=== PATIENT | female | born 1990 | race Caucasian/White ===

== ENCOUNTER → 2017-10-18 | Outpatient (CLI) | payer SELFPAY ==
[~2017-10-18] MED LIST: AMOXICILLIN 50500 MG PO; FERROUS SULFATE65 MG PO; IBU600 MG PO; MACROBID 1100 MG/CAP PO; NO HOME MEDICATIONS; NORCO 325 MG-7.1 TAB PO; PERCOCET 325 MG1 TA2 PO; PRENATAL; PRENATAL1 TA1 PO; PROTONIX20 MG PO
== END ==
LOC: COL.RAD 13:25
DX: E04.2 Nontoxic multinodular goiter (principal)

== ENCOUNTER 2020-12-07 18:24 | Outpatient (CLI) | payer MEDICAID ==
[~2020-12-07] VITALS: Ht 167.6 cm; Wt 112.7 kg
--- NOTE | 2020-12-07 18:55 | NUR ---
G4L3. 37.6. Ambulatory to LDR 4. Clean gown on. EFM and TOCO explained and applied. Pt states she is here with complaints of milky white discharge that she has been having for the past 2 weeks. Pt states if she does not have a pad on the discharge gets on her legs. Pt also reports mild cramping that has been happening for awhile but states since she has only had scheduled C/S she does not know what contractions feel like. Denies vaginal bleeding and reports good movment. Pt does report having two yeast infections during this that she has never had a problem with before. Plan of care explained. SVE closed and amniotest was negative. White milky discharge noted to exam glove. Second amniotest on exam glove was also negative. VS and assessment completed. 1915: called and update on pts status. See physican notification. 1921: NST reactive. Pt off monitors and instructed to changed into street clothes. 1929: Discharge instructions given to pt and stessed importance to call office to schedule appointment for further testing per orders. Pt verbalized her understanding. Denies questions at this time. Pt ambulatory off unit.
[2020-12-07] MEDS ORDERED: SYNTHROID0.05 MG/TA PO (19:10)
[2020-12-07] MEDS ORDERED: PRENATAL MVI PO (19:11)
[2020-12-07] MEDS ORDERED: NATURAL IRON65 MG PO (19:11)
[2020-12-07 19:22] VITALS: BP 127/80; PULSE 108; TEMP 97.8
== END 2020-12-07 19:30 | disposition home or self-care (01) ==
LOC: LDRO 18:24
DX: O99.343 Other mental disorders complicating pregnancy, third trimester (principal); O34.63 Maternal care for abnormality of vagina, third trimester; R25.2 Cramp and spasm; Z3A.37 37 weeks gestation of pregnancy

== ENCOUNTER 2020-12-17 05:34 | Inpatient (IN) | payer MEDICAID ==
[~2020-12-17] VITALS: Ht 167.6 cm; Wt 114.1 kg
[2020-12-17] VITALS (17 sets, daily range): BP systolic 95–128; BP diastolic 49–78; PULSE 61–686; TEMP 97.8–98.5
[~2020-12-17 05:34] MED LIST changes: +NATURAL IRON65 MG PO; +PRENATAL MVI PO; +SYNTHROID0.05 MG/TA PO
--- NOTE | 2020-12-17 05:40 | NUR ---
0540 ADM TO 213 FOR SCHEDULED REPEAT C/S. EFM ON WITH 130 BASELINE. PERMITS SIGNED. 0600 IV STARTED AND LABS DRAWN.
[2020-12-17 06:20] LABS: BASO % 0.4 % (0.0-2.0); EOS # 0.1 (0.0-0.7); EOS % 1.4 % (0-4.0); GRAN # 6.2 (1.4-6.5); HEMATOCRIT 38.7 % (37.0-47.0); HEMOGLOBIN 12.4 g/dl (12.5-16.0); LYMPH # 2.9 (1.2-3.4); LYMPH % 28.8 % (20.0-51.0); MEAN CELL VOLUME 89 fl (80.0-100.0); MEAN CORPUSCULAR HEMOGLOBIN 28 pg (27.0-31.0); MEAN CORPUSCULAR HGB CONC 32 g/dl (33.0-37.0); MEAN PLATELET VOLUME 11.8 fl (7.4-10.4); MONO # 0.7 (0.1-0.6); MONO % 6.9 % (1.7-9.3); PLATELET COUNT 177 K/mm3 (130-400); RED BLOOD COUNT 4.36 M/mm3 (4.10-5.30); REDCELL DISTRIBUTION WIDTH-CV 14.7 % (11.5-14.5)
[2020-12-17] MEDS ORDERED: LEVOXYL0.075 MG PO (06:40)
--- NOTE | 2020-12-17 08:20 | NUR ---
To pacu via bed. Monitors applied. Plan of care reviewed.
--- NOTE | 2020-12-17 08:50 | NUR ---
VSS. Fundus firm, midline, and bleeding scant. Too room 213 via bed. Oriented to room and plan of care. Patient denies questions or needs at this time. Resting with call light within reach.
--- NOTE | 2020-12-17 16:30 | NUR ---
Patient assited to sit on edge of bed. Denies dizziness or lightheadedness. Patient stands by edge of bed. Patient states legs still feel heavy, unable to ambulate to bathroom. Ekaterina care provided, and pads changed. Patient back to bed.
[2020-12-18 00:05] VITALS: BP 104/64; PULSE 72; TEMP 97.7
[2020-12-18 08:25] VITALS: BP 98/50; PULSE 80; TEMP 97.3
--- NOTE | 2020-12-18 10:03 | NUR ---
Initial visit; Parents thanked Clinical Implementation Specialist for offering congratulations and God's blessings for the of their daughter. Clinical Implementation Specialist thanked family for choosing our hospital.
[2020-12-18] MEDS ORDERED: PERCOCET 325 MG1 TA2 PO (11:03)
[2020-12-18] MEDS ORDERED: IBU800 M1 PO (11:03)
[2020-12-18 15:45] VITALS: BP 119/63; PULSE 71; TEMP 97.5
== END 2020-12-18 16:30 | disposition home or self-care (01) | DRG 788 ==
LOC: OB
PROVIDERS: ADMIT Student in an Organized Health Care Education/Training Program
PROC: 10D00Z1 Extraction of Products of Conception, Low, Open Approach (ICD-10-PCS; principal; 2020-12-17)
DX: O34.211 Maternal care for low transverse scar from previous cesarean delivery (principal); Z3A.39 39 weeks gestation of pregnancy; Z37.0 Single live birth; O99.284 Endocrine, nutritional and metabolic diseases complicating childbirth; E28.2 Polycystic ovarian syndrome; E03.9 Hypothyroidism, unspecified; O99.02 Anemia complicating childbirth; D64.9 Anemia, unspecified; O99.214 Obesity complicating childbirth; E66.9 Obesity, unspecified; O99.344 Other mental disorders complicating childbirth; F41.9 Anxiety disorder, unspecified; Z86.16 Personal history of COVID-19
CPT/HCPCS: J0690; J1885; J2175; J2370; J2405; J2590; J7120